=== PATIENT | female | born 1970 | race African-American/Black ===

== ENCOUNTER 2017-07-03 09:23 | Emergency (ER) | payer SELFPAY ==
[~2017-07-03] VITALS: Ht 154.9 cm; Wt 66.0 kg
[2017-07-03 09:29] VITALS: BP 138/91; PULSE 104; RESP 18; TEMP 98.4; O2SAT 100
--- NOTE | 2017-07-03 10:56 | PD ---
HPI Chief Complaint: Skin Problem Time Seen by Provider: 10:48 Travel History International Travel<30 days: No Contact w/Intl Traveler<30days: No Traveled to known affect area: No History of Present Illness HPI Examined in the presence of a female nurse. 46-year-old female presents for evaluation of an abscess in the left groin region. It started 2 days ago. It is painful, throbbing, worse with palpation. Denies drainage, fevers or chills. No other complaints. PFSH Social History Alcohol Use: No Tobacco Use: No Allergies-Medications (Allergen,Severity, Reaction): Coded Allergies: No Known Allergies (Unverified , 07/03/17) Reported Meds & Prescriptions Reported Meds & Active Scripts Active Ibuprofen 800 Mg Tab 800 Mg PO Q6HR PRN Clindamycin (Clindamycin HCl) 300 Mg Cap 300 Mg PO TID Review of Systems Except as stated in HPI: all other systems reviewed are Neg Physical Exam Narrative GENERAL: Well-nourished female in no acute distress SKIN: Warm and dry. 2 cm fluctuant abscess in the left groin region not involving the labial folds. There is no drainage. There is mild surrounding cellulitic changes. HEAD: Atraumatic. Normocephalic. EYES: Pupils equal and round. No scleral icterus. No injection or drainage. ENT: No nasal bleeding or discharge. Mucous membranes pink and moist. NECK: Trachea midline. No JVD. CARDIOVASCULAR: Regular rate and rhythm. No murmur appreciated. RESPIRATORY: No accessory muscle use. Clear to auscultation. Breath sounds equal bilaterally. GASTROINTESTINAL: Abdomen soft, non-tender, nondistended. Hepatic and splenic margins not palpable. Data Data Last Documented VS Vital Signs Date Time Temp Pulse Resp B/P (MAP) Pulse Ox O2 Delivery O2 Flow Rate FiO2 07/03/17 09:29 98.4 104 18 138/91 (107) 100 Room Air Orders Orders Wound Culture And Gram Stain (07/03/17 10:54) Lidocai-Epi 1%-1:100,000 Inj (Xylocaine- (07/03/17 11:00) Lidocai-Epi 0.5%-1:200,000 Inj (Xylocain (07/03/17 11:15) Lidocai-Epi 0.5%-1:200,000 Inj (Xylocain (07/03/17 11:15) Ibuprofen (Motrin) (07/03/17 11:45) Ed Discharge Order (07/03/17 11:42) [facility] Medical Decision Making Medical Screen Exam Complete: Yes Emergency Medical Condition: Yes Medical Record Reviewed: Yes Differential Diagnosis Cutaneous abscess, Bartholin gland cyst, cellulitis, fourniers Narrative Course The patient has an abscess in the left groin region. Plan is for incision and drainage, wound culture. She verbally consents. She will be started on clindamycin. Procedures Procedure Narrative INCISION AND DRAINAGE OF ABSCESS: The area was prepped and was sterilely draped. A subcutaneous wheal of 0.5% lidocaine with epinephrine with a total number 6 mL was used to anesthetize the area. The area was properly anesthetized. A number 11 scalpel was used to make a 1 -cm incision across the area of the abscess. Cultures were obtained. The abscess was drained an irrigated with normal saline. Diagnosis Primary Impression: Abscess, groin Additional Instructions: Take medication as prescribed. Warm bath twice a day 20 minutes at a time. Follow-up with primary care as needed and return for any acutely new or worsening symptoms. Med/Other Pt SpecificInfo: Prescription(s) given Scripts Ibuprofen (Ibuprofen) 800 Mg Tab 800 MG PO Q6HR Y for PAIN, #30 TAB 0 Refills Prov: Cindy Castellon MD 07/03/17 Clindamycin (Clindamycin) 300 Mg Cap 300 MG PO TID for Infection, #30 CAP 0 Refills Prov: Cindy Castellon MD 07/03/17 Disposition: 01 DISCHARGE HOME Condition: Stable Gen Liriano Jul 03, 2017 10:56
[2017-07-03] MEDS ORDERED: LIDOCAINE 1%/EPINEPHrine 1:100,000 SOLN 20 ML VIAL INFIL ONE (11:00)
[2017-07-03] MEDS ORDERED: LIDOCAINE 0.5%/EPINEPHrine 1:200,000 SOLN 50 ML VIAL OTHER ONE (11:15)
[2017-07-03] MEDS ORDERED: LIDOCAINE 0.5%/EPINEPHrine 1:200,000 SOLN 50 ML VIAL INFIL ONE (11:15)
[2017-07-03] MEDS ORDERED: IBUP1TAB7 PO (11:43)
[2017-07-03] MEDS ORDERED: CLIN300C5 PO (11:43)
[2017-07-03] MEDS ORDERED: IBUPROFEN 800 MG TAB PO ONE (11:45)
== END 2017-07-03 11:57 | disposition home or self-care (01) ==
LOC: PHED 09:23 → PHEFT 11:57
DX: L02.214 Cutaneous abscess of groin (principal); B95.1 Streptococcus, group B, as the cause of diseases classified elsewhere; B95.61 Methicillin susceptible Staphylococcus aureus infection as the cause of diseases classified elsewhere
CPT/HCPCS: 10060; 86403; 87070; 87077; 87186

== ENCOUNTER 2017-10-05 17:57 | Emergency (ER) | payer SELFPAY ==
[~2017-10-05] VITALS: Ht 154.9 cm; Wt 62.5 kg
[~2017-10-05 17:57] MED LIST: CLIN300C5 PO; IBUP1TAB7 PO
[2017-10-05 17:59] VITALS: BP 152/93; PULSE 109; RESP 16; TEMP 98.3; O2SAT 99
[2017-10-05] MEDS ORDERED: ZOFR4TAB PO (19:25)
--- NOTE | 2017-10-05 19:26 | PD ---
HPI Chief Complaint: ENT Complaint Time Seen by Provider: 18:48 Travel History International Travel<30 days: No Contact w/Intl Traveler<30days: No Traveled to known affect area: No History of Present Illness HPI This is a 47-year-old female here with cough, nasal congestion, sore throat, body ache, 2 episodes of nausea vomiting today. She denies abdominal pain. Reported fever several days ago. Symptoms severity is moderate. No aggravating or alleviating factors. Patient reports and episode of vomiting after drinking "too much orange juice". PFSH Past Medical History Medical History: Denies Significant Hx Hx Anticoagulant Therapy: No Diabetes: No Tetanus Vaccination: > 5 Years Influenza Vaccination: No ?: Not Social History Alcohol Use: Yes (occas wine) Tobacco Use: No (black n mild occas/quit) Substance Use: No Allergies-Medications (Allergen,Severity, Reaction): Coded Allergies: No Known Allergies (Unverified , 10/05/17) Reported Meds & Prescriptions Reported Meds & Active Scripts Active No Active Prescriptions or Reported Medications Review of Systems Except as stated in HPI: all other systems reviewed are Neg General / Constitutional: No: Fever Eyes: No: Visual changes HENT: Positive: Sore Throat, Rhinitis, Congestion Cardiovascular: No: Chest Pain or Discomfort Respiratory: Positive: Cough Gastrointestinal: No: Abdominal Pain Genitourinary: No: Dysuria Physical Exam Narrative GENERAL: Alert and well-appearing 2-year-old female. SKIN: Warm and dry. No rash HEAD: Normocephalic. EYES: No injection or drainage. Ears/nose/throat: No TM erythema. Clear nasal discharge. Mild pharyngeal erythema without tonsillar hypertrophy or exudate. NECK: Supple. No meningismus. CARDIOVASCULAR: Regular rate and rhythm RESPIRATORY: Breath sounds equal bilaterally. No accessory muscle use. GASTROINTESTINAL: Abdomen soft, non-tender, nondistended. No rebound or guarding MUSCULOSKELETAL: No cyanosis, or edema. Data Data Last Documented VS Vital Signs Date Time Temp Pulse Resp B/P (MAP) Pulse Ox O2 Delivery O2 Flow Rate FiO2 10/05/17 17:59 98.3 109 16 152/93 (112) 99 Orders Orders Ondansetron Odt (Zofran Odt) (10/05/17 19:30) MDM Medical Decision Making Medical Screen Exam Complete: Yes Emergency Medical Condition: Yes Differential Diagnosis influenza, gastroenteritis, pneumonia, other viral illness Narrative Course Since a 47-year-old female here with flulike illness 3 days. She is reporting some nausea and vomiting today. No abdominal pain. Her vital signs are stable. She is well-appearing. Her abdomen is soft and nontender. She is not within the parameters for treatment of Tamiflu. She was given with Zofran and reported symptom improvement. She'll be treated for viral illness Diagnosis Primary Impression: Influenza-like illness Referrals: Primary Care Physician Scripts Ondansetron (Zofran) 4 Mg Tab 4 MG PO Q8HR Y for NAUSEA OR VOMITING, #10 TAB 0 Refills Prov: Rea Rae 10/05/17 Disposition: 01 DISCHARGE HOME Condition: Stable Rea Rae Oct 05, 2017 19:26
[2017-10-05] MEDS ORDERED: ONDANSETRON ODT 4 MG TAB PO ONE (19:30)
== END 2017-10-05 19:40 | disposition home or self-care (01) ==
LOC: PHEFT 17:57
DX: J11.1 Influenza due to unidentified influenza virus with other respiratory manifestations (principal); R11.2 Nausea with vomiting, unspecified
CPT/HCPCS: 99283